=== PATIENT | female | born 1945 | race Caucasian/White ===

== ENCOUNTER → 2016-11-21 | Outpatient (CLI) | payer BC, MEDICARE ==
[~2016-11-21] MED LIST: AMLODIPINE BESYL5 MG PO; ASPIRIN EC81 M1 PO; ATORVASTATIN CA10 MG PO; DILT-XR240 MG PO; EFFIENT10 MG PO; HYDROCHLOROTHIA25 MG PO; ISOSORBIDE MONO30 M1 PO; METOPROLOL TAR25 MG PO; PRILOSEC PO; TENORMIN50 MG PO; VITAMIN D50000 UNIT PO
--- NOTE | ~2016-11-21 | MY11 ---
[facility] A Service of [facility] RADIOLOGY TEXT RESULTS PATIENT: ISMAEL SHEA LOCATION: [facility] : 45 UNIT #: [id number] AGE: [address]: Maxwell Anthony MD SEX: F ORDER DR: [id number] [facility] [address]. [place], [place] [address] [id number] O MR#: [id number] Acc #: [id number] NAME: ISMAEL SHEA : 1945 SEX: F STUDY DATE/TIME: 11/21/2016 14:49 UNIT: [facility] ROOM: STUDY DESCRIPTION: MY Mammogram Screening Dig Devin Attending Physician: Maxwell Anthony M.D. Referring Physician: Maxwell Anthony M.D. Ordering Physician: Maxwell Anthony M.D. Primary Care Physician: Maxwell Anthony M.D. MEDICAL IMAGING REPORT This report is preliminary unless electronic signature is present EXAM Digital screening mammogram, 11/21/2016 HISTORY 71-year-old woman positive family history, maternal aunt. Previous right breast biopsy. Annual screening. COMPARISON Mammograms date to 11/25/2005 with most recent 11/07/2014. FINDINGS Digital imaging of each breast was completed utilizing a two-view examination of each breast in craniocaudal and mediolateral-oblique projections. Review and interpretation of digital mammograms include a second review in conjunction with FDA-approved CAD device. There is a normal parenchymal presentation bilaterally consistent with the patient's age. There are no breast masses imaged and no parenchymal asymmetry is visualized. There are no suspicious microcalcifications and I see no focal architectural disturbance. IMPRESSION Negative screening digital mammogram. One-year followup recommended. Patients over the age of 40 are entered into a reminder system with target due date for the next mammogram. A result letter will also be sent to the patient. BIRADS: 1 Negative Dictated by... Manuelito Osullivan M.D. THIS IS AN ELECTRONICALLY VERIFIED REPORT [facility] A Service of [facility] RADIOLOGY TEXT RESULTS PATIENT: ISMAEL SHEA LOCATION: [facility] : 45 UNIT #: [id number] AGE: [address]: Maxwell Anthony MD SEX: F ORDER DR: Manuelito Osullivan M.D. at 11/22/2016 11:33 AM Hill TD: 11/22/2016 09:38 JOB #: [id number] MEDICAL IMAGING REPORT Page 1 of 1 COPY
== END | disposition home or self-care (01) ==
LOC: CWCC 14:08
DX: Z12.31 Encounter for screening mammogram for malignant neoplasm of breast (principal); Z80.3 Family history of malignant neoplasm of breast; Z98.890 Other specified postprocedural states
CPT/HCPCS: G0202

== ENCOUNTER → 2017-03-21 | Day surgery (SDC) | payer BC, MEDICARE ==
--- NOTE | ~2017-03-21 | OR ---
Unit #: [id number] #: [id number] Patient: ISMAEL SHEA [id number] [address] [place], [place] [address] [id number] O MR#: [id number] NAME: ISMAEL SHEA ROOM: Date of Procedure: 03/21/2017 Admission Date: 03/21/2017 Surgeon: Kwabena Vargas Jr., M.D. : 1945 Attending Physician: Kwabena Vargas Jr., M.D. Primary Care Physician: Maxwell Anthony M.D. OPERATIVE REPORT INDICATION FOR PROCEDURE The patient is a 71-year-old white female, who was recently checked noted to have some anemia. There was a question of whether she may have GI bleeding and she is brought in this time at her request and her family physician's request for upper and lower endoscopy to rule out source of her anemia. She understands the procedure including the risks, including that of perforation and bleeding, and consents. She has had her prep at home. PREOPERATIVE DIAGNOSIS Anemia, possible gastrointestinal blood loss. POSTOPERATIVE DIAGNOSES On upper endoscopy, the patient was noted to have a small hiatal hernia. Some mild atrophic gastritis and on colonoscopy to the cecum, she was noted to have a small 1 mm or so polyp of the rectum, of the hepatic flexure area in the transverse colon and of the cecum as well as left-sided diverticulosis. ANESTHESIA MAC anesthesia. PROCEDURE PERFORMED Flexible fiberoptic esophagogastroduodenoscopy with antral biopsy for Helicobacter pylori and flexible colonoscopy to the cecum with biopsies of small polyps using cold biopsy forceps. DESCRIPTION OF PROCEDURE The patient was positioned in Lora position with left side down. After being given MAC anesthesia, Olympus XQ scope was passed through the proximal esophagus. Entire esophagus was examined. There was no evidence of any significant esophagitis. No evidence of any stenosis. The scope was advanced through the GE junction and the cardia, and down to the fundic and antral region of the stomach and retroflexed back up to the area of the cardia. There was a small hiatal hernia present. The stomach distended well without evidence of rigidity. No evidence of any gastric ulcer disease, but there was some scar tissue in the antrum possibly related to a previous healed ulcer. There was also some mild atrophic gastritis. A biopsy was taken from the antrum for H pylori without significant bleeding. The scope was advanced through the pylorus and duodenal bulb and down to the second portion of the duodenum. The entire duodenal portion examination was within normal limits. The scope was then Unit #: [id number] #: [id number] Patient: ISMAEL SHEA slowly removed. The patient repositioned for colonoscopy. Digital rectal examination was performed, which revealed no palpable mass or tenderness. No blood or stool within the rectal ampulla. The Olympus colonoscope was advanced into the anal canal up the rectum and retroflexed down to the area of the anorectal region. There was a small 1 mm or so polyp, which was biopsied and removed with the cold biopsy forceps, which appeared benign. There was no evidence of any bleeding from the biopsy site. The scope was then straightened and advanced up in the rectosigmoid, in the sigmoid and descending colon areas, around the splenic flexure and the transverse colon, around the hepatic flexure, where there was a small 1 to 2 mm polyp likewise biopsied and removed with cold biopsy forceps without bleeding. The scope was then advanced around the hepatic flexure and ascending colon down in the area of the cecum. The light from the tip of the scope could be seen transilluminating through right lower quadrant abdominal wall area. There was a small polyp in the cecum, which was appeared to be the villous in nature. Several biopsies were taken from it without significant bleeding. Multiple attempts advancing the scope up the distal ileum were unsuccessful. The scope was slowly removed. There were no tumors, polyps, cancer, or AVMs. No evidence of any colitis or diverticulitis. There were multiple diverticula in the left colon. No evidence of any narrowing or obstruction. The scope was removed. The patient tolerated the procedure well and discharged in satisfactory condition. Dictated by... Kwabena Vargas Jr., M.D. JMB/john TD: 03/21/2017 16:34 JOB #: [id number] OPERATIVE REPORT Page 1 of 1 X Kwabena Vargas MD X PROCEDURE OPERATIVE NOTE
== END | disposition home or self-care (01) ==
LOC: COPS 11:00
DX: D12.0 Benign neoplasm of cecum (principal); D12.3 Benign neoplasm of transverse colon; K62.1 Rectal polyp; K29.40 Chronic atrophic gastritis without bleeding; K44.9 Diaphragmatic hernia without obstruction or gangrene; K57.30 Diverticulosis of large intestine without perforation or abscess without bleeding; I25.2 Old myocardial infarction; K21.9 Gastro-esophageal reflux disease without esophagitis; D64.9 Anemia, unspecified; I25.10 Atherosclerotic heart disease of native coronary artery without angina pectoris; I10 Essential (primary) hypertension; Z88.0 Allergy status to penicillin; Z98.51 Tubal ligation status; Z98.890 Other specified postprocedural states; Z87.440 Personal history of urinary (tract) infections; Z87.891 Personal history of nicotine dependence; Z98.61 Coronary angioplasty status; Z79.82 Long term (current) use of aspirin; Z79.899 Other long term (current) drug therapy
CPT/HCPCS: 87077; 88305